=== PATIENT | male | born 1975 | race African-American/Black ===

== ENCOUNTER 2024-01-08 03:27 | Emergency (ER) | payer BC ==
[~2024-01-08] VITALS: Ht 177.8 cm; Wt 86.0 kg
[2024-01-08 03:49] VITALS: O2SAT 98
[2024-01-08 06:59] VITALS: PULSE 71; TEMP 97.8
[2024-01-08] MEDS: ACETAMINOPHEN 325MG TABLET PO ONE (06:59)
[2024-01-08] MEDS: KETOROLAC 60MG/2ML VIAL IM ONE (06:59)
[2024-01-08 07:00] VITALS: BP 132/79; RESP 18
[2024-01-08] MEDS: LIDOCAINE 5% PATCH TOP SCH (07:00)
== END 2024-01-08 07:16 | disposition home or self-care (01) ==
LOC: ER 04:07
DX: S39.012A Strain of muscle, fascia and tendon of lower back, initial encounter (principal); X58.XXXA Exposure to other specified factors, initial encounter; Y93.89 Activity, other specified; Y92.89 Other specified places as the place of occurrence of the external cause; Y99.8 Other external cause status
CPT/HCPCS: 99283; 96372; J1885